=== PATIENT | female | born 1995 | race Caucasian/White ===

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

== ENCOUNTER 2017-04-15 15:38 | Emergency (ER) | payer OTHER ==
[~2017-04-15] VITALS: Ht 157.5 cm; Wt 104.5 kg
[2017-04-15 15:42] VITALS: BP 123/79; TEMP 98.7
[2017-04-15 17:09] VITALS: PULSE 85
== END 2017-04-15 17:10 | disposition home or self-care (01) ==
LOC: COL.ER 15:38
DX: G89.29 Other chronic pain (principal); M54.5 Low back pain; G43.909 Migraine, unspecified, not intractable, without status migrainosus; J45.909 Unspecified asthma, uncomplicated; Z98.818 Other dental procedure status; Z98.890 Other specified postprocedural states
CPT/HCPCS: G0463; J1885